=== PATIENT | female | born 1975 | race Caucasian/White ===

== ENCOUNTER 2017-11-27 14:49 | Emergency (ER) | payer OTHER, BC ==
[~2017-11-27] VITALS: Ht 160 cm; Wt 96.7 kg
[2017-11-27] MEDS ORDERED: ULTRAM50 MG PO (18:39)
[2017-11-27 18:59] VITALS: BP 123/83
== END 2017-11-27 19:01 | disposition home or self-care (01) ==
LOC: EME 14:49
PROC: 2W3DX1Z Immobilization of Left Lower Arm using Splint (ICD-10-PCS; principal; 2017-11-27)
DX: S52.615A Nondisplaced fracture of left ulna styloid process, initial encounter for closed fracture (principal); S52.502A Unspecified fracture of the lower end of left radius, initial encounter for closed fracture; V00.121A Fall from non-in-line roller-skates, initial encounter; Y93.51 Activity, roller skating (inline) and skateboarding
CPT/HCPCS: 73090; 73110; 99281; 99284